=== PATIENT | female | born 1970 | race Caucasian/White ===

== ENCOUNTER → 2019-10-01 | Outpatient (CLI) | payer BC ==
[2019-10-01 12:28] LABS: BASOPHILS % (AUTO) 1 % (0-10); EOSINOPHILS # (AUTO) 0.3 10^3/uL (0.0-0.3); EOSINOPHILS % (AUTO) 5 % (0-10); HEMATOCRIT 39 % (35-52); HEMOGLOBIN 12.7 G/DL (11.5-16.0); LYMPHOCYTES # (AUTO) 1.4 X 10^3 (1.0-4.0); LYMPHOCYTES % (AUTO) 26 % (12-44); MEAN CORPUSCULAR HEMOGLOBIN 30 PG (25-34); MEAN CORPUSCULAR HGB CONC 32 G/DL (32-36); MEAN CORPUSCULAR VOLUME 93 FL (80-99); MONOCYTES # (AUTO) 0.4 X 10^3 (0.0-1.0); MONOCYTES % (AUTO) 7 % (0-12); NEUTROPHILS # (AUTO) 3.4 X 10^3 (1.8-7.8); NEUTROPHILS % (AUTO) 62 % (42-75); PLATELET COUNT 184 10^3/uL (130-400); RED CELL DISTRIBUTION WIDTH 12.4 % (10.0-14.5); WHITE BLOOD COUNT 5.6 10^3/uL (4.3-11.0)
[2019-10-01 13:04] LABS: ALANINE AMINOTRANSFERASE 15 U/L (0-55); ALBUMIN 3.8 GM/DL (3.2-4.5); ALKALINE PHOSPHATASE 121 U/L (40-136); BILIRUBIN,TOTAL 0.2 MG/DL (0.1-1.0); BUN/CREATININE RATIO 29; CALCIUM 8.7 MG/DL (8.5-10.1); CARBON DIOXIDE 25 MMOL/L (21-32); CHLORIDE 104 MMOL/L (98-107); CREATININE SERUM 0.68 MG/DL (0.60-1.30); GFR ESTIMATED > 60; GLUCOSE 112 MG/DL (70-105); SODIUM 140 MMOL/L (135-145); TOTAL PROTEIN 6.3 GM/DL (6.4-8.2)
== END ==
LOC: LAB FS 11:59
PROVIDERS: ATTEND Family Medicine
DX: M79.621 Pain in right upper arm (principal)
CPT/HCPCS: 36415; 80053; 85025

== ENCOUNTER 2021-02-02 02:05 | Emergency (ER) | payer BC, OTHER ==
[~2021-02-02] VITALS: Ht 162.5 cm; Wt 115.3 kg
[2021-02-02] MEDS ORDERED: NS IV 1000 ML 1,000 ML IV SCH (02:30)
[2021-02-02] MEDS ORDERED: ONDANSETRON 4 MG/2 ML (SDV) Z0FRAN IVP ONE (02:30)
[2021-02-02] MEDS ORDERED: fentaNYL INJECTION 100 MCG/2 ML AMP IVP ONE ×3 (02:30→04:45)
[2021-02-02] MEDS ORDERED: KETOROLAC 30 MG/ML VIAL IVP ONE (02:30)
[2021-02-02 03:11] LABS: HEMATOCRIT 41 % (35-52); HEMOGLOBIN 13.4 G/DL (11.5-16.0); MEAN CORPUSCULAR HEMOGLOBIN 30 PG (25-34); WHITE BLOOD COUNT 8.2 10^3/uL (4.3-11.0)
[2021-02-02 03:12] LABS: BASOPHILS # (AUTO) 0.1 10^3/uL (0.0-0.1); BASOPHILS % (AUTO) 1 % (0-10); EOSINOPHILS # (AUTO) 0.1 10^3/uL (0.0-0.3); EOSINOPHILS % (AUTO) 2 % (0-10); LYMPHOCYTES % (AUTO) 13 % (12-44); MEAN CORPUSCULAR HGB CONC 33 G/DL (32-36); MEAN CORPUSCULAR VOLUME 92 FL (80-99); MEAN PLATELET VOLUME 11.4 FL (7.4-10.4); MONOCYTES # (AUTO) 0.5 X 10^3 (0.0-1.0); MONOCYTES % (AUTO) 6 % (0-12); NEUTROPHILS # (AUTO) 6.4 X 10^3 (1.8-7.8); NEUTROPHILS % (AUTO) 79 % (42-75); PLATELET COUNT 202 10^3/uL (130-400)
[2021-02-02 03:24] LABS: CLARITY,URINE SL CLOUDY; COLOR,URINE YELLOW; GLUCOSE, URINE (UA) NEGATIVE (NEGATIVE); PROTEIN,URINE NEGATIVE (NEGATIVE)
[2021-02-02 03:25] LABS: AMORPHOUS SEDIMENT,UR FEW AMOR PHOSPHATE /LPF; BACTERIA,URINE TRACE /HPF; BILIRUBIN,URINE NEGATIVE (NEGATIVE); KETONES,URINE NEGATIVE (NEGATIVE); LEUKOCYTE ESTERASE ,URINE NEGATIVE (NEGATIVE); NITRITE,URINE NEGATIVE (NEGATIVE); WBC,URINE 0-2 /HPF
[2021-02-02 03:41] LABS: POTASSIUM 4.1 MMOL/L (3.6-5.0)
[2021-02-02 03:42] LABS: BILIRUBIN,TOTAL 0.2 MG/DL (0.1-1.0); CREATININE SERUM 0.99 MG/DL (0.60-1.30); TOTAL PROTEIN 6.8 GM/DL (6.4-8.2)
[2021-02-02] MEDS ORDERED: TMSL.4C PO (05:45)
[2021-02-02] MEDS ORDERED: ONDA4TAB11 PO (05:45)
[2021-02-02] MEDS ORDERED: OXYC1TAB87 PO (05:45)
--- NOTE | 2021-02-02 05:46 | ED General ---
General Chief Complaint: Abdominal/GI Problems Stated Complaint: ABD PAIN,VOMITING Nursing Triage Note: Pt in per POV with c/o LLq Abd pain with vomiting. Onset of 2330 yesterday. Knee surgery scheduled for today. Nursing Sepsis Screen: No Definite Risk Source of Information: Patient Exam Limitations: No Limitations History of Present Illness Date Seen by Provider: Feb 02, 2021 Time Seen by Provider: 02:00 Initial Comments Patient is a 50-year-old female who presents with acute onset left flank/lower quadrant pain starting approximately 3 hours prior to ED arrival. Patient also reports nausea and vomiting. Pain is described as sharp, intense rated moderate to severe with dull components. Pain waxes and wanes but never fully goes away. Pain is not improved with palpation or position change. No flank pain. No hematuria, urinary frequency urgency or burning. No history of kidney stones or kidney infections. No other acute symptoms or complaints. Timing/Duration: 1-3 Hours Severity: Moderate, Severe Modifying Factors: improves with Other Associated Systoms: Other Allergies and Home Medications Allergies Coded Allergies: morphine (Verified Allergy, Unknown, 02/02/21) Patient Home Medication List Home Medication List Reviewed: Yes Review of Systems Review of Systems Constitutional: see HPI EENTM: see HPI Respiratory: see HPI Cardiovascular: see HPI Gastrointestinal: see HPI Genitourinary: see HPI Musculoskeletal: see HPI Skin: see HPI Psychiatric/Neurological: See HPI Hematologic/Lymphatic: See HPI Immunological/Allergic: see HPI All Other Systems Reviewed Negative Unless Noted: Yes Past Wvaefub-Vituls-Oapjzv Hx Past Med/Social Hx: Reviewed Nursing Past Med/Soc Hx Patient Social History Alcohol Use: Denies Use 2nd Hand Smoke Exposure: No Recent Infectious Disease Expo: No Past Medical History : No [employer] History: Hysterectomy Physical Exam Vital Signs Vital Signs - First Documented 02/02/21 02:15 Temp 35.8 Pulse 73 Resp 18 B/P (MAP) 149/81 (103) Pulse Ox 98 O2 Delivery Room Air Capillary Refill : Less Than 3 Seconds Height, Weight, BMI Height: '" Weight: lbs. oz. kg; 43.00 BMI Method: General Appearance: Moderate Distress Eyes: Bilateral Eye Normal Inspection, Bilateral Eye PERRL, Bilateral Eye EOMI HEENT: PERRL/EOMI, Normal ENT Inspection, Pharynx Normal Neck: Full Range of Motion, Normal Inspection, Supple Respiratory: Chest Non Tender, Lungs Clear Cardiovascular: Regular Rate, Rhythm Gastrointestinal: Soft, Other (Left lower quadrant pain/tenderness.) Back: Normal Inspection, No CVA Tenderness Extremity: Non Tender, No Calf Tenderness Neurologic/Psychiatric: Alert, Oriented x3 Skin: Normal Color Lymphatic: Axilla Node Tender (L) Focused Exam Sepsis Stage: Ruled Out Respiratory: Lungs Clear Progress/Results/Core Measures Suspected Sepsis Recent Fever Within 48 Hours: No Infection Criteria Present: None New/Unexplained Altered Menta: No Sepsis Screen: No Definite Risk SIRS Temperature: Pulse: 73 Respiratory Rate: 18 Laboratory Tests 02/02/21 02:50: White Blood Count 8.2 Blood Pressure 149 /81 Mean: 104 Laboratory Tests 02/02/21 02:50: Creatinine 0.99, Platelet Count 202, Total Bilirubin 0.2 Results/Orders Lab Results Laboratory Tests Test 02/02/21 02:25 02/02/21 02:50 Range/Units Urine Color YELLOW Urine Clarity SL CLOUDY Urine pH 7.0 5-9 Urine Specific [place] 1.020 1.016-1.022 Urine Protein NEGATIVE NEGATIVE Urine Glucose (UA) NEGATIVE NEGATIVE Urine Ketones NEGATIVE NEGATIVE Urine Nitrite NEGATIVE NEGATIVE Urine Bilirubin NEGATIVE NEGATIVE Urine Urobilinogen 0.2 < = 1.0 MG/DL Urine Leukocyte Esterase NEGATIVE NEGATIVE Urine RBC (Auto) 2+ H NEGATIVE Urine RBC 5-10 H /HPF Urine WBC 0-2 /HPF Urine Squamous Epithelial Cells 2-5 /HPF Urine Crystals PRESENT H /LPF Urine Amorphous Sediment FEW MARIELLA PHOSPHATE H /LPF Urine Bacteria TRACE /HPF Urine Casts NONE /LPF Urine Mucus NEGATIVE /LPF Urine Culture Indicated YES White Blood Count 8.2 4.3-11.0 10^3/uL Red Blood Count 4.50 4.35-5.85 10^6/uL Hemoglobin 13.4 11.5-16.0 G/DL Hematocrit 41 35-52 % Mean Corpuscular Volume 92 80-99 FL Mean Corpuscular Hemoglobin 30 25-34 PG Mean Corpuscular Hemoglobin Concent 33 32-36 G/DL Red Cell Distribution Width 12.8 10.0-14.5 % Platelet Count 202 130-400 10^3/uL Mean Platelet Volume 11.4 H 7.4-10.4 FL Immature Granulocyte % (Auto) 1 % Neutrophils (%) (Auto) 79 H 42-75 % Lymphocytes (%) (Auto) 13 12-44 % Monocytes (%) (Auto) 6 0-12 % Eosinophils (%) (Auto) 2 0-10 % Basophils (%) (Auto) 1 0-10 % Neutrophils # (Auto) 6.4 1.8-7.8 X 10^3 Lymphocytes # (Auto) 1.0 1.0-4.0 X 10^3 Monocytes # (Auto) 0.5 0.0-1.0 X 10^3 Eosinophils # (Auto) 0.1 0.0-0.3 10^3/uL Basophils # (Auto) 0.1 0.0-0.1 10^3/uL Immature Granulocyte # (Auto) 0.1 0.0-0.1 10^3/uL Sodium Level 141 135-145 MMOL/L Potassium Level 4.1 3.6-5.0 MMOL/L Chloride Level 104 98-107 MMOL/L Carbon Dioxide Level 26 21-32 MMOL/L Anion Gap 11 5-14 MMOL/L Blood Urea Nitrogen 23 H 7-18 MG/DL Creatinine 0.99 0.60-1.30 MG/DL Estimat Glomerular Filtration Rate 59 BUN/Creatinine Ratio 23 Glucose Level 145 H 70-105 MG/DL Calcium Level 9.0 8.5-10.1 MG/DL Corrected Calcium 9.0 8.5-10.1 MG/DL Total Bilirubin 0.2 0.1-1.0 MG/DL Aspartate Amino Transf (AST/SGOT) 18 5-34 U/L Alanine Aminotransferase (ALT/SGPT) 14 0-55 U/L Alkaline Phosphatase 132 40-136 U/L Total Protein 6.8 6.4-8.2 GM/DL Albumin 4.0 3.2-4.5 GM/DL Lipase 31 8-78 U/L My Orders Orders - HOA MENDEZ DO Cbc With Automated Diff (02/02/21 02:29) Comprehensive Metabolic Panel (02/02/21 02:29) Urinalysis (02/02/21 02:29) Lipase (02/02/21 02:29) Fentanyl Injection (Sublimaze Injection (02/02/21 02:30) Ns Iv 1000 Ml (Sodium Chloride 0.9%) (02/02/21 02:30) Ondansetron Injection (Zofran Injectio (02/02/21 02:30) Ketorolac Injection (Toradol Injection) (02/02/21 02:30) Ct Abdomen/Pelvis Wo (02/02/21 02:36) Urine Culture (02/02/21 02:25) Fentanyl Injection (Sublimaze Injection (02/02/21 04:00) Fentanyl Injection (Sublimaze Injection (02/02/21 04:45) Medications Given in ED Current Medications Medications Dose Ordered Sig/Flavia Route Start Time Stop Time Status Last Admin Dose Admin Fentanyl Citrate 50 mcg ONCE ONCE IVP 02/02/21 04:00 02/02/21 04:01 DC 02/02/21 04:05 50 MCG Fentanyl Citrate 50 mcg ONCE ONCE IVP 02/02/21 04:45 02/02/21 04:46 DC 02/02/21 05:38 50 MCG Fentanyl Citrate 100 mcg ONCE ONCE IVP 02/02/21 02:30 02/02/21 02:36 DC 02/02/21 02:59 100 MCG Ketorolac Tromethamine 30 mg ONCE ONCE IVP 02/02/21 02:30 02/02/21 02:36 DC 02/02/21 02:55 30 MG Ondansetron HCl 4 mg ONCE ONCE IVP 02/02/21 02:30 02/02/21 02:36 DC 02/02/21 03:22 4 MG Vital Signs/I&O 02/02/21 02/02/21 02:15 04:11 Temp 35.8 36.2 Pulse 73 75 Resp 18 16 B/P (MAP) 149/81 (103) 143/85 (104) Pulse Ox 98 97 O2 Delivery Room Air Room Air Capillary Refill : Less Than 3 Seconds Blood Pressure Mean: 104 Departure Communication (Admissions) CT abdomen pelvis: 3 to 4 mm stone at left UVJ with mild hydronephrosis. Lab and imaging reviewed. Repeat pain medication given. Patient resting comfortably. Will discharge home with instructions to follow-up with PCP and/or urologist as needed. Return precautions reviewed. Patient verbalizes understanding agreement discharge instructions prior to departure. Impression Primary Impression: Abdominal wall pain Additional Impression: Ureteral calculus, left Disposition: 01 HOME, SELF-CARE Condition: Stable Departure-Patient Inst. Decision time for Depature: 05:44 Referrals: SUZI FONTENOT APRN (PCP) Primary Care Physician [facility] (Family) Primary Care Physician Patient Instructions: Kidney Stones in Adults Add. Discharge Instructions: Please increase fluids and strain urine for stone. Take newly prescribed medications as directed. Follow-up with your PCP in 3 to 5 days for reevaluation if symptoms persist. Return to the ED if new or worsening symptoms All discharge instructions reviewed with patient and/or family. Voiced understanding. Scripts Ondansetron (Ondansetron Odt) 4 Mg Tab.rapdis 4 MG PO Q6H, #10 TAB Prov: HOA MENDEZ DO 02/02/21 Oxycodone HCl/Acetaminophen (Percocet 5-325 mg Tablet) 1 Each Tablet 1 TAB PO Q4H for PAIN-MODERATE MDD 6 TABS for 7 Days, #15 TAB Prov: HOA MENDEZ DO 02/02/21 Tamsulosin HCl (Flomax) 0.4 Mg Cap 0.4 MG PO DAILY, #5 CAP Prov: HOA MENDEZ DO 02/02/21 HOA MENDEZ DO Feb 02, 2021 05:46
--- NOTE | 2021-02-02 06:14 | Diagnostic Imaging Report ---
PROCEDURE: CT abdomen and pelvis without contrast. TECHNIQUE: Multiple contiguous axial images were obtained through the abdomen and pelvis without the use of intravenous contrast. Auto Exposure Controls were utilized during the CT exam to meet ALARA standards for radiation dose reduction. INDICATION: Left flank pain COMPARISON: None FINDINGS: There is moderate left-sided hydronephrosis and hydroureter secondary to a 4 mm stone in the left UVJ. The right kidney, ureter and bladder are otherwise unremarkable. The lung bases are clear. Gallbladder surgically absent. Additional solid organs, vascular structures and bowel are normal. There are few diverticuli of the signal colon without diverticulitis. The uterus is surgically absent. Osseous structures are age-appropriate. IMPRESSION: Moderate left-sided hydronephrosis secondary to an obstructive 4 mm stone at the UVJ. Agree with preliminary report. Dictated by: Dictated on workstation # [id number]
[2021-02-02 06:16] VITALS: BP 109/57
== END 2021-02-02 06:37 | disposition home or self-care (01) ==
LOC: MERGE 02:08 → ER FS 02:08
DX: N13.2 Hydronephrosis with renal and ureteral calculous obstruction (principal); Z88.5 Allergy status to narcotic agent
CPT/HCPCS: 36415; 74176; 80053; 81000; 83690; 85025; 87088